=== PATIENT | female | born 1965 | race Caucasian/White ===

== ENCOUNTER 2020-03-28 15:20 | Emergency (ER) | payer MEDICARE, OTHER ==
[~2020-03-28] VITALS: Ht 175.3 cm; Wt 69.9 kg
--- NOTE | 2020-03-28 15:40 | NUR ---
GA, FROM [facility], FOR MEDICAL CLEARANCE AND PSYCH EVAL. PT AAOX2. RR EVEN & UNLABORED. DENIES CP, SOB, DIZZINESS, N/V AT THIS TIME. AWAITING EVAL BY [facility]. PT CALM & COOPERATIVE @ THIS TIME. WILL CONT TO MONITOR. CINDY @ BS.
[2020-03-28] MEDS ORDERED: OLANZAPINE 10 MG VIAL IM ONE ×4 (16:00→17:31)
--- NOTE | 2020-03-28 16:13 | NUR ---
MEDICATED PER ER[facility] ORDER, PT AMADEO WELL.
[2020-03-28 16:23] LABS: APPEARANCE,URINE Clear (CLEAR); BILIRUBIN,URINE Negative (NEGATIVE); BLOOD, URINE Negative Ery/uL (NEGATIVE); COLOR,URINE Yellow (YELLOW); KETONES,URINE Negative (NEGATIVE); LEUKOCYTE ESTERASE ,URINE Small (NEGATIVE); NITRITE, URINE Negative (NEGATIVE); PROTEIN,URINE Negative (NEGATIVE); UGLUCOSE Negative (NEGATIVE); UROBILINOGEN,URINE 0.2 EU/dL (0.2)
[2020-03-28 16:37] LABS: BASOPHILS % (AUTO) 0.4 % (0.0-2.0); EOSINOPHILS % (AUTO) 0.1 % (0.0-6.0); HEMATOCRIT 42 % (33-45); HEMOGLOBIN 13.4 g/dL (11.5-14.8); LYMPHOCYTES # (AUTO) 1.1 /CMM (0.8-4.8); LYMPHOCYTES % (AUTO) 25.3 % (20.0-44.0); MEAN CORPUSCULAR HGB CONC 32 g/dl (31.0-36.0); MEAN CORPUSCULAR VOLUME 93 fL (82-100); MONOCYTES # (AUTO) 0.4 /CMM (0.1-1.30); MONOCYTES % (AUTO) 8.8 % (2.0-12.0); NEUTROPHILS # (AUTO) 2.9 /CMM (1.8-8.9); NEUTROPHILS % (AUTO) 65.4 % (43.0-81.0); PLATELET COUNT (AUTO) 147 /CMM (150-450); RED BLOOD CELL COUNT(AUTO) 4.44 MIL/uL (4.0-5.2); WHITE BLOOD COUNT (AUTO) 4.4 K/uL (4.3-11.0)
[2020-03-28 16:57] LABS: BACTERIA,URINE None seen /HPF (None Seen); RBC,URINE 0-2 /HPF (0-2); SQUAMOUS EPITHELIAL CELL,UR Few /HPF (None Seen)
[2020-03-28 17:10] LABS: ALANINE AMINOTRANSFERASE 15 U/L (12-78); ALBUMIN 3.8 g/dL (3.4-5.0); ALKALINE PHOSPHATASE 145 U/L (46-116); ASPARTATE AMINOTRANSFERASE 12 U/L (15-37); BILIRUBIN,DIRECT 0.1 mg/dL (0.0-0.2); BILIRUBIN,TOTAL 0.2 mg/dL (0.2-1.0); CALCIUM, SERUM 9.9 mg/dL (8.5-10.1); CARBON DIOXIDE 30 mmol/L (21-32); CHLORIDE 105 mmol/L (98-107); CREATININE 1.3 mg/dL (0.6-1.3); GLUCOSE 83 mg/dL (74-106); POTASSIUM 4.4 mmol/L (3.5-5.1); SALICYLATE 4.6 mg/dL (2.8-20.0); SODIUM SERUM 142 mmol/L (136-145); TOTAL PROTEIN, SERUM 7.3 g/dL (6.4-8.2)
[2020-03-28 17:12] LABS: ACETAMINOPHEN < 2 ug/ml (10-30)
[2020-03-28 17:13] LABS: ALCOHOL, BLOOD < 3 mg/dL (0-0)
--- NOTE | 2020-03-28 17:29 | NUR ---
pt medically cleared called vanessa, on her way.
[2020-03-28 18:18] LABS: UREA NITROGEN, BLOOD 21 mg/dL (7-18)
--- NOTE | 2020-03-28 19:35 | NUR ---
PT CONSTANTLY YELLING AND BEING AGITATED AT BEDSIDE. PT VERBALLY ABUSIVE TO STAFF. MADE AWARE
[2020-03-28] MEDS ORDERED: LISINOPRIL (5MG) 5 MG TABLET PO STA (19:37)
[2020-03-28] MEDS ORDERED: HALOPERIDOL LACTATE INJ 5 MG/ML VIAL ONE (19:43)
[2020-03-28] MEDS ORDERED: HALOPERIDOL LACTATE INJ 5 MG/ML VIAL IM ONE (20:00)
[2020-03-28] MEDS ORDERED: LORAZEPAM INJ 2 MG/ML VIAL ONE (20:28)
[2020-03-28] MEDS ORDERED: LORAZEPAM INJ 2 MG/ML VIAL IM ONE (20:30)
--- NOTE | 2020-03-28 20:35 | NUR ---
MEDICATED PER [facility] ORDER. PT YELLING, SAYING FOUL LANGUAGES. PLACED ON FORMS BUILDER. WILL CONT TO MONITOR.
--- NOTE | 2020-03-28 20:46 | NUR ---
REPORT CALLED TO [facility] DAR KRISHNAN.
--- NOTE | 2020-03-28 20:46 | NUR ---
[facility] B[facility] ETA [id number]
--- NOTE | 2020-03-28 23:33 | NUR ---
REPORT GIVEN TO [facility] FOR TRANSPORTATION [place]
[2020-03-28 23:39] VITALS: BP 142/72
== END 2020-03-28 23:42 ==
LOC: ER 15:29
DX: R45.1 Restlessness and agitation (principal); R41.0 Disorientation, unspecified; I44.4 Left anterior fascicular block; S90.812A Abrasion, left foot, initial encounter; X58.XXXA Exposure to other specified factors, initial encounter; Y92.89 Other specified places as the place of occurrence of the external cause; Z20.828 Contact with and (suspected) exposure to other viral communicable diseases
CPT/HCPCS: 36415; 80048; 80076; 80164; 80305; 80307; 80329; 81001; 85025; 87426; 93005; 96372 ×2; 99291; G0480; J1630; J2060; J3490 ×2; 81000-TC; C9803-CS